=== PATIENT | male | born 1985 | race African-American/Black ===

== ENCOUNTER 2018-03-26 07:47 | Emergency (ER) | payer SELFPAY ==
--- NOTE | 2018-03-26 08:29 | ER Document Report ---
ED General - General Chief Complaint: Respiratory Distress Stated Complaint: BREATHING PROBLEMS Time Seen by Provider: 03/26/18 08:12 TRAVEL OUTSIDE OF THE [place] IN LAST 30 DAYS: No - HPI Notes: Patient is a 33-year-old male that presents to the emergency department for chief complaint of dyspnea and palpitations. Patient states over the last week he has had increased shortness of breath. He states with minimal exertion he feels dyspneic. This is not with every time he is exerting himself and only happens a few times daily. He states he gets associated palpitations and feels very anxious. He states his symptoms usually last for 30 minutes and then resolved. Today the symptoms seemed more severe and have been more persistent. He denies any recent surgery, travel, immobilization and personal history of cancer. He denies any lower extremity swelling or cramping. He states he may have a cousin that has had DVTs and PEs in the past but no immediate family members he is aware of. He denies any chronic medical issues. He denies any chest pain. He does state that sometimes he feels lightheaded and some paresthesias in his bilateral pinkies when the palpitations are going on however he is not having the symptoms currently. He does state currently he is feeling better but still feels some dyspnea and palpitations. Past Medical History: Negative Past Surgical History: Negative Social History: Denies tobacco and alcohol. Occasional marijuana. Family History: Reviewed and noncontributory for presenting illness Allergies: Reviewed, see documented allergy list. REVIEW OF SYSTEMS: CONSTITUTIONAL : No fever No chills No diaphoresis No recent illness EENT: No vision changes No congestion No sore throat CARDIOVASCULAR: No chest pain palpitations RESPIRATORY: shortness of breath No cough difficulty breathing GASTROINTESTINAL: No abdominal pain No nausea No vomiting No diarrhea GENITOURINARY: No dysuria No hematuria No difficulty urinating MUSCULOSKELETAL: No back pain No leg pain No arm pain SKIN: No rashes No lesions LYMPHATIC: No swollen, enlarged glands. NEUROLOGICAL: No lightheadedness No headache No weakness No paresthesias PSYCHIATRIC: No anxiety No depression PHYSICAL EXAMINATION: Vital signs reviewed, nursing noted reviewed. GENERAL: Well-appearing, well-nourished and in no acute distress. HEAD: Atraumatic, normocephalic. EYES: Eyes appear normal, extraocular movements intact, sclera anicteric, co njunctiva are normal. ENT: nares patent, oropharynx clear without exudates. Moist mucous membranes. NECK: Normal range of motion, supple without lymphadenopathy LUNGS: Breath sounds clear to auscultation bilaterally and equal. No wheezes rales or rhonchi. HEART: Regular rate and rhythm without murmurs ABDOMEN: Soft, nontender, normoactive bowel sounds. No rebound, guarding, or rigidity. No masses appreciated. EXTREMITIES: negative homans sign, Nontender, good range of motion, no pitting or edema. NEUROLOGICAL: No focal neurological deficits. Moves all extremities spontaneously Motor and sensory grossly intact on exam. PSYCH: Normal mood, normal affect. SKIN: Warm, Dry, normal turgor, no rashes or lesions noted on exposed skin - Related Data Allergies/Adverse Reactions: No Known Allergies Allergy (Unverified 03/26/18 08:04) Past Medical History - Social History Smoking Status: Never Smoker Family History: Reviewed & Not Pertinent Physical Exam - Vital signs Vitals: Resp 22 H 03/26/18 08:42 Course - Re-evaluation Re-evalutation: 03/26/18 08:32 Vitals reviewed. Nursing notes reviewed. Patient is resting comfortably and in no acute distress. He is oxygenating well on room air with calm respirations. EKG shows right axis with changes concerning for possible PE. Patient is PERC and WELLS negative. 03/26/18 10:36 Patient reevaluated and has no change in his presentation. He is still breathing well on room air and in no respiratory distress. He is still denying any chest pain. Patient CT scan shows bilateral proximal large pulmonary emboli. Patient has a right axis suggestive of heart strain on his EKG. I discussed his case with Dr. Jensen at [facility] for concern that patient may require clot retrieval. He recommends obtaining BNP and troponin prior to making that decision. He states if those enzymes are normal then they would likely not perform a clot retrieval but that would be dependent on the vascular or CT surgeon. These labs were ordered and are currently pending. Patient started on heparin for his PEs. 03/26/18 10:40 Patient's care was discussed with Dr. Serna who reviewed patient's images and EKG. He is concerned the patient is a high risk for long-term complications because of these PEs. He also feels that patient is a possible candidate for cl ot retrieval and recommends continuing with transfer to higher level of care. 03/26/18 11:01 Patient's troponin did return slightly elevated at 0.049. His BNP is normal. I re-discussed his case with Dr. Jensen who feels that he may be a candidate for clot retrieval depending on his echo results. He has accepted patient for transfer. He advises against TPA but is in agreement with the heparin infusion. Patient is in agreement with transfer and entire plan of care. He is still hemodynamically stable and in no respiratory distress. Patient will be transferred to [facility] for further management. Laboratory 03/26/18 03/26/18 03/26/18 08:43 08:43 08:43 WBC 5.2 RBC 5.38 Hgb 16.0 Hct 47.4 MCV 88 MCH 29.6 MCHC 33.7 RDW 13.3 Plt Count 145 L Seg Neutrophils % 55.2 Lymphocytes % 30.1 Monocytes % 12.9 Eosinophils % 1.2 Basophils % 0.6 Absolute Neutrophils 2.9 Absolute Lymphocytes 1.6 Absolute Monocytes 0.7 Absolute Eosinophils 0.1 Absolute Basophils 0.0 D-Dimer 8.72 H Sodium 141.1 Potassium 4.0 Chloride 106 Carbon Dioxide 27 Anion Gap 8 BUN 17 Creatinine 0.94 Est GFR ( Amer) > 60 Est GFR (Non-Af Amer) > 60 Glucose 96 Calcium 9.6 Troponin I NT-Pro-B Natriuret Pep 03/26/18 08:43 WBC RBC Hgb Hct MCV MCH MCHC RDW Plt Count Seg Neutrophils % Lymphocytes % Monocytes % Eosinophils % Basophils % Absolute Neutrophils Absolute Lymphocytes Absolute Monocytes Absolute Eosinophils Absolute Basophils D-Dimer Sodium Potassium Chloride Carbon Dioxide Anion Gap BUN Creatinine Est GFR ( Amer) Est GFR (Non-Af Amer) Glucose Calcium Troponin I 0.049 NT-Pro-B Natriuret Pep 38 Chest X-Ray 03/26/18 08:21 IMPRESSION: NO ACUTE RADIOGRAPHIC FINDING IN THE CHEST. Chest/Abdomen CTA 03/26/18 09:29 IMPRESSION: Bilateral pulmonary emboli, acute - Vital Signs Vital signs: Temp Pulse Resp BP Pulse Ox 97.7 F 27 H 138/94 H 96 03/26/18 08:45 03/26/18 08:45 03/26/18 08:45 03/26/18 08:45 - Laboratory Result Diagrams: 03/26/18 08:43 03/26/18 08:43 Laboratory results interpreted by me: 03/26/18 03/26/18 08:43 08:43 Plt Count 145 L D-Dimer 8.72 H - EKG Interpretation by Me Additional EKG results interpreted by me: 03/26/18 08:29 Interpreted by myself 0811: Normal sinus rhythm, rate 76, right axis, [id number], no ectopy, no STEMI Critical Care Note - Critical Care Note Total time excluding time spent on procedures (mins): 45 Comments: Critical care time spent obtaining history from patient or surrogate, discussions with consultants, development of treatment plan with patient or surrogate, evaluation of patient's response to treatment, examination of patient, ordering and performing treatments and interventions, ordering and r eview of laboratory studies, re-evaluation of patient's condition, ordering and review of radiographic studies and review of old charts Discharge - Discharge Clinical Impression: Pulmonary embolism, bilateral, Elevated troponin Condition: Stable Disposition: [facility]
--- NOTE | 2018-03-26 08:46 | RADIOLOGY REPORT (SQ) ---
EXAM DESCRIPTION: CHEST SINGLE VIEW COMPLETED DATE/TIME: 03/26/2018 8:37 am REASON FOR STUDY: shortness of breath COMPARISON: None. EXAM PARAMETERS: NUMBER OF VIEWS: One view. TECHNIQUE: Single frontal radiographic view of the chest acquired. RADIATION DOSE: NA LIMITATIONS: None. FINDINGS: LUNGS AND PLEURA: No opacities, masses or pneumothorax. No pleural effusion. MEDIASTINUM AND HILAR STRUCTURES: No masses. Contour normal. HEART AND VASCULAR STRUCTURES: Heart normal in size. Normal vasculature. BONES: No acute findings. HARDWARE: None in the chest. OTHER: No other significant finding. IMPRESSION: NO ACUTE RADIOGRAPHIC FINDING IN THE CHEST. TECHNICAL DOCUMENTATION: JOB ID: [id number] [employer]- All Rights Reserved Reading location - IP/workstation name: [email or web address]
[2018-03-26 09:02] LABS: ABSOLUTE EOSINOPHILS # (AUTO) 0.1 10^3/uL (0.0-0.6); ABSOLUTE LYMPHOCYTES (AUTO) 1.6 10^3/uL (0.5-4.7); ABSOLUTE MONOCYTES (AUTO) 0.7 10^3/uL (0.1-1.4); ABSOLUTE NEUT (AUTO) 2.9 10^3/uL (1.7-8.2); BASOPHILS % (AUTO) 0.6 % (0-2); EOSINOPHILS % (AUTO) 1.2 % (0-6); HEMATOCRIT 47.4 % (37.9-51.0); LYMPHOCYTES % (AUTO) 30.1 % (13-45); MEAN CORPUSCULAR HEMOGLOBIN 29.6 pg (27.0-33.4); MEAN CORPUSCULAR HGB CONC 33.7 g/dL (32.0-36.0); MEAN CORPUSCULAR VOLUME 88 fl (80-97); MONOCYTES % (AUTO) 12.9 % (3-13); PLATELET COUNT 145 10^3/uL (150-450); RED BLOOD COUNT 5.38 10^6/uL (4.35-5.55); RED CELL DISTRIBUTION WIDTH 13.3 % (11.5-14.0); SEGMENTED NEUTROPHILS % (AUTO) 55.2 % (42-78); TOTAL CELLS COUNTED % (AUTO) 100 %; WHITE BLOOD COUNT 5.2 10^3/uL (4.0-10.5)
[2018-03-26 09:19] LABS: ANION GAP 8 (5-19); BLOOD UREA NITROGEN 17 mg/dL (7-20); CALCIUM 9.6 mg/dL (8.4-10.2); CARBON DIOXIDE 27 mmol/L (22-30); CHLORIDE 106 mmol/L (98-107); GLUCOSE 96 mg/dL (75-110); SODIUM 141.1 mmol/L (137-145)
--- NOTE | 2018-03-26 09:24 | EKG REPORT ---
SEVERITY:- BORDERLINE ECG - SINUS RHYTHM RIGHT AXIS DEVIATION BORDERLINE T ABNORMALITIES, INFERIOR LEADS : Confirmed by: Yesenia Graham 26-Mar-2018 09:24:00
[2018-03-26] MEDS ORDERED: HEPARIN SODIUM,PORCINE/D5W 25,000 UNIT/250 ML RTUINJ IV PRN (10:21)
[2018-03-26] MEDS ORDERED: HEPARIN SOD (PORCINE) 1,000 UNIT/ML 10 ML VIAL IV ONE (10:21)
--- NOTE | 2018-03-26 10:33 | RADIOLOGY REPORT (SQ) ---
EXAM DESCRIPTION: CTA CHEST COMPLETED DATE/TIME: 03/26/2018 10:12 am REASON FOR STUDY: PE chest pain, shortness of breath, EKG changes COMPARISON: AP chest 03/26/2018 TECHNIQUE: CT scan of the chest performed using helical scanning technique with dynamic intravenous contrast injection. Images reviewed with lung, soft tissue and bone windows. Reconstructed coronal and sagittal MPR images reviewed. Additional 3 dimensional post-processing performed to develop Maximal Intensity Projection images (VA P). All images stored on PACS. All CT scanners at this facility use dose modulation, iterative reconstruction, and/or weight based d osing when appropriate to reduce radiation dose to as low as reasonably achievable (ALARA). [facility]: Dose Right [facility]: CareDose [facility]: Dose Right [facility]: Teradose 4D [facility]: BioMCN CONTRAST TYPE AND DOSE: contrast/concentration: Isovue 350.00 mg/ml; Total Contrast Delivered: 84.0 ml; Total Saline Delivered: 81.4 ml Contrast bolus optimized for the pulmonary arteries. Not diagnostic for the aorta. RENAL FUNCTION: None required. The patient is less than 50 years old. RADIATION DOSE: CT Rad equipment meets quality standard of care and radiation dose reduction techniq ues were employed. CTDIvol: 19.8 - 24.2 mGy. DLP: 868 mGy-cm. . LIMITATIONS: None. FINDINGS: LUNGS AND PLEURA: No masses, infiltrates, or pneumothorax. No pleural effusions or pleura l calcifications. AORTA AND GREAT VESSELS: No aneurysm. Contrast bolus not optimized for the aorta. HEART: No pericardial effusion. No significant coronary artery calcifications. PULMONARY ARTERIES: There are bilateral large pulmonary emboli to the distal right main pulmonary art siena, and distal left main pulmonary artery with clot extending into segmental pulmonary artery branch es. This result was called to Dr Noguera in the emergency room 1010 hours as a critical result. HILAR AND MEDIASTINAL STRUCTURES: No identified masses or abnormal nodes. HARDWARE: None in the chest. UPPER ABDOMEN: No significant findings. Limited exam. THYROID AND OTHER SOFT TISSUES: No masses. No adenopathy. BONES: No acute or significant finding. 3D MIPS: Confirm above findings. OTHER: No other significant finding. IMPRESSION: Bilateral pulmonary emboli, acute COMMENT: Pertinent findings on the imaging study reported as a CRITICAL RESULT to DIANA NOGUERA DO at1 0:10 on 03/26/2018. Category of Critical Result: Bilateral large pulmonary emboli Quality ID # [id number]: Final reports with documentation of one or more dose reduction techniques (e.g., Au tomated exposure control, adjustment of the mA and/or kV according to patient size, use of iterative reconstruction technique) TECHNICAL DOCUMENTATION: JOB ID: [id number] [employer]- All Rights Reserved Reading location - IP/workstation name: [email or web address] [email or web address]
[2018-03-26] MEDS ORDERED: LORAZEPAM 1 MG TABLET PO ONE (11:57)
[2018-03-26] MEDS ORDERED: ONDANSETRON HCL INJ/PF 4 MG/2 ML SDV IV ONE (12:16)
[2018-03-26 12:40] VITALS: BP 141/86
[2018-03-26] MEDS ORDERED: HEPARIN SOD (PORCINE) 1,000 UNIT/ML 10 ML VIAL IV PRN (13:21)
== END 2018-03-26 12:33 | disposition short-term general hospital (02) ==
LOC: ER 07:47
DX: I26.99 Other pulmonary embolism without acute cor pulmonale (principal); R74.8 Abnormal levels of other serum enzymes; F41.9 Anxiety disorder, unspecified; R06.02 Shortness of breath; R00.2 Palpitations; R20.2 Paresthesia of skin; R42 Dizziness and giddiness
CPT/HCPCS: 93005; 96376; 99291; 96375; 96365; 96366; 36415; 85025; 80048; 85379; 71045; 71275; 93010; J1644 ×2; J2405